=== PATIENT | male | born 1975 | race Caucasian/White ===

== ENCOUNTER 2016-12-16 09:26 | Emergency (ER) | payer OTHER ==
[2016-12-16] MEDS ORDERED: DELTASONE 20 MG PO ONE (10:48)
[2016-12-16] MEDS ORDERED: DELTASONE 20 MG ONE (10:53)
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
[2016-12-16 11:35] VITALS: BP 127/94; PULSE 77; O2SAT 97
== END 2016-12-16 11:37 | disposition home or self-care (01) ==
LOC: ED 09:26
DX: G51.0 Bell's palsy (principal); H92.02 Otalgia, left ear; Z79.891 Long term (current) use of opiate analgesic
CPT/HCPCS: 99281; J7506